=== PATIENT | male | born 1965 | race African-American/Black ===

== ENCOUNTER 2018-06-17 16:53 | Emergency (ER) | payer SELFPAY ==
[~2018-06-17] VITALS: Ht 182.9 cm; Wt 72.1 kg
[2018-06-17 17:04] VITALS: BP 133/94
--- NOTE | 2018-06-17 17:09 | NUR ---
VSS, PT AMBULATED TO LOBBY. XRAY ORDERED
--- NOTE | 2018-06-17 18:55 | NUR ---
PT AMBULATED TO [facility]
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
[2018-06-17 20:43] VITALS: BP 133/94
--- NOTE | 2018-06-17 20:43 | NUR ---
Patient discharged with v/s stable. Written and verbal after care instructions given and explained. Patient alert, oriented and verbalized understanding of instructions. Ambulatory with CRUTCHES steady gait. All questions addressed prior to discharge. ID band removed. Patient advised to follow up with PMD. Rx of NORCO AND IBUPROFEN WAS given. Patient educated on indication of medication including possible reaction and side effects. Opportunity to ask questions provided and answered. EDUCATED ON CRUTCHES
== END 2018-06-17 20:43 | disposition home or self-care (01) ==
LOC: EDBD 16:53 → MED 16:53
DX: S92.001A Unspecified fracture of right calcaneus, initial encounter for closed fracture (principal); W00.0XXA Fall on same level due to ice and snow, initial encounter; Y93.89 Activity, other specified; Y92.89 Other specified places as the place of occurrence of the external cause; Y99.8 Other external cause status
CPT/HCPCS: 29515; 73610; 73630; 99283